=== PATIENT | male | born 1965 | race American Indian/Alaskan Native ===

== ENCOUNTER 2017-12-16 13:47 | Emergency (ER) | payer OTHER ==
[2017-12-16 14:07] VITALS: TEMP 98; O2SAT 98
--- NOTE | 2017-12-16 15:34 | C.PDOC ---
History Of Present Illness <Keshia Osuna - Last Filed: 12/19/17 12:30> <Katie Mota - Last Filed: 12/20/17 12:15> 52-year-old male, presents to the emergency department with complaints of mid- sternal chest pain x2 days, which is now in the left chest since last night, described as a sharp sensation. Patient states pain sometimes radiates to left back, and is not associated with shortness of breath, nausea/vomiting, palpitations, abdominal pain or any other associated symptoms. No other complaints at this time. Of note, pt is non-compliant with medications for approximately two months. (Katie Mota) <Keshia Osuna - Last Filed: 12/19/17 12:30> History Per: Patient History/Exam Limitations: no limitations Current Symptoms Are (Timing): Still Present Severity: Moderate <SvetlanaRobinKatie Ron - Last Filed: 12/20/17 12:15> Time Seen by Provider: 12/16/17 15:16 Chief Complaint (Nursing): Chest Pain Past Medical History Reviewed: Historical Data, Nursing Documentation, Vital Signs - Medical History PMH: HTN Family History: States: No Known Family Hx - Social History Hx Alcohol Use: No Hx Substance Use: No - Immunization History Hx Tetanus Toxoid Vaccination: No Hx Influenza Vaccination: No Hx Pneumococcal Vaccination: No <Katie Mota - Last Filed: 12/20/17 12:15> Vital Signs: Last Vital Signs Temp 98 F 12/16/17 14:03 Pulse 72 12/16/17 17:01 Resp 17 12/16/17 17:01 BP 158/99 H 12/16/17 17:01 Pulse Ox 98 12/16/17 18:11 Review Of Systems Cardiovascular: Positive for: Chest Pain, Palpitations Respiratory: Negative for: Shortness of Breath Gastrointestinal: Negative for: Nausea, Vomiting Skin: Negative for: Rash Neurological: Negative for: Weakness, Numbness <SvetlanaRobinKatie Ron - Last Filed: 12/20/17 12:15> Physical Exam - Physical Exam Appears: Non-toxic, No Acute Distress Skin: Normal Color, Warm, Dry, No Rash Head: Atraumatic, Normacephalic Eye(s): bilateral: Normal Inspection Nose: Normal Oral Mucosa: Moist Lips: Normal Appearing Neck: Normal ROM Cardiovascular: Rhythm Regular, No Murmur Respiratory: Normal Breath Sounds, No Accessory Muscle Use Gastrointestinal/Abdominal: Soft, No Tenderness Extremity: Normal ROM, No Deformity Neurological/Psych: Oriented x3, Normal Speech <SvetlanaKatie metzger - Last Filed: 12/20/17 12:15> ED Course And Treatment - Laboratory Results Result Diagrams: 12/16/17 16:12/16/17 16:09 <Keshia Osuna - Last Filed: 12/19/17 12:30> - Laboratory Results Result Diagrams: 12/16/17 16:12/16/17 16:09 ECG: Interpreted By Me, Viewed By Me ECG Rhythm: Sinus Rhythm ECG Interpretation: No Acute Changes Interpretation Of ECG: Left axis deviation. Incomplete RBBB Rate From EC (bpm) O2 Sat by Pulse Oximetry: 98 (RA) Pulse Ox Interpretation: Normal Progress Note: Bloodwork, EKG, Chest X-Ray ordered and reviewed. Pt given PO Norvasc/HCTZ. Reevaluation Time: 18:15 Reassessment Condition: Improved (Patient reassessed, is resting comfortably, in no pain or distress. Patient's bloos work, including Voltea x 2, was WNL. Patient is comfortable with being discharged home. Rx for HTN medication given. Patient instructed to follow up with PMD in 1-2 days, and he understands he should return to ED if symptoms worsen.) <Katie Mota - Last Filed: 12/20/17 12:15> Disposition <Keshia Osuna - Last Filed: 12/19/17 12:30> Counseled Patient/Family Regarding: Studies Performed, Diagnosis, Need For Followup, Rx Given - Disposition Disposition Time: 18:15 <Katie Mota - Last Filed: 12/20/17 12:15> - Disposition Referrals: [facility] [Outside] Disposition: HOME/ ROUTINE Condition: STABLE Additional Instructions: FOLLOW UP WITH YOUR DOCTOR/CLINIC IN 1-2 DAYS RETURN TO ER IF SYMPTOMS WORSEN Prescriptions: Amlodipine/Valsartan/Hcthiazid [[id number] 5-160-12.5 mg] 1 each PO DAILY #30 tablet Hydrochlorothiazide [Microzide] 12.5 mg PO DAILY #14 cap Instructions: Chest Pain That Is Not Caused by the Heart (DC) Forms: General Discharge Instructions, [facility] (Telugu) Print Language: JORDANIAN - Clinical Impression Clinical Impression: Non-cardiac chest pain, Hypertension <Keshia Osuna - Last Filed: 12/19/17 12:30> - Scribe Statement The provider has reviewed the documentation as recorded by the Scribe (Elissa Lama) <Katie Mota - Last Filed: 12/20/17 12:15> - Scribe Statement Provider Attestation: All medical record entries made by the Scribe were at my direction and personally dictated by me. I have reviewed the chart and agree that the record accurately reflects my personal performance of the history, physical exam, medical decision making, and the department course for this patient. I have also personally directed, reviewed, and agree with the discharge instructions and disposition. (Katie Mota) Addendum <Keshia Osuna - Last Filed: 12/19/17 12:30> <Katie Mota - Last Filed: 12/20/17 12:15> Addendum: 12/19/17 12:31 PT REQUEST ALL HTN MED RX DUE TO "MEDICATION PRESCRIBED TO ME ON 12/16/17 IS ON [facility]". HCTZ 12.5 MG RX GIVEN, PS WILL SEE PMD 3 DAYS (Keshia Osuna)
[2017-12-16 16:21] LABS: BASO % 0.7 % (0.0-2.0); EOS # 0.2 K/uL (0.0-0.7); EOS % 5.5 % (0.0-4.0); HEMOGLOBIN 13.9 g/dL (12.0-18.0); LYMPH # 1.6 K/uL (1.0-4.3); LYMPH % 39.6 % (20.0-40.0); MEAN CELL VOLUME 79.2 fL (80.0-94.0); MEAN CORPUSCULAR HEMOGLOBIN 27.3 pg (27.0-31.0); MEAN CORPUSCULAR HGB CONC 34.5 g/dL (33.0-37.0); MEAN PLATELET VOLUME 9.3 fL (7.2-11.7); MONO # 0.4 K/uL (0.0-0.8); MONO % 10.8 % (0.0-10.0); NEUT # 1.8 K/uL (1.8-7.0); NEUT % 43.4 % (50.0-75.0); NRBC % 0.1 % (0.0-2.0); RBC 5.08 Mil/uL (4.40-5.90); RED CELL DISTRIBUTION WIDTH 13.8 % (11.5-14.5); WHITE BLOOD COUNT 4.1 K/uL (4.8-10.8)
[2017-12-16 16:25] LABS: INR 1.1; PROTHROMBIN TIME 11.7 SECONDS (9.7-12.2)
--- NOTE | 2017-12-16 16:25 | RAD ---
Date of service: 12/16/2017 PROCEDURE: CHEST RADIOGRAPH, 1 VIEW HISTORY: Chest pain COMPARISON: None available. FINDINGS: LUNGS: The lungs are well inflated and clear. PLEURA: No pneumothorax or pleural fluid seen. CARDIOVASCULAR: Normal. OSSEOUS STRUCTURES: No significant abnormalities. VISUALIZED UPPER ABDOMEN: Normal. OTHER FINDINGS: None. IMPRESSION: No active pulmonary disease.
[2017-12-16 16:41] LABS: ALB/GLOB RATIO 1.4 (1.0-2.1); ALBUMIN 4.2 g/dL (3.5-5.0); ALT/SGPT 36 U/L (21-72); AST/SGOT 26 U/L (17-59); BLOOD UREA NITROGEN 11 mg/dL (9-20); CALCIUM 9.3 mg/dl (8.6-10.4); GFR NON-AFRICAN AMERICAN > 60
[2017-12-16 16:49] LABS: CK-MB 1.04 ng/mL (0.0-3.38)
[2017-12-16 17:01] VITALS: BP 158/99; PULSE 72; RESP 17
[2017-12-16 17:59] LABS: CK-MB 0.94 ng/mL (0.0-3.38)
--- NOTE | 2017-12-17 14:37 | CARD ---
APPROVED REPORT Date of service: 12/16/2017 EKG Measurement Heart [id number] <Conclusion> Normal sinus rhythm Borderline ECG
== END 2017-12-16 18:17 | disposition home or self-care (01) ==
LOC: C.ER 13:47
DX: R07.89 Other chest pain (principal); I10 Essential (primary) hypertension